=== PATIENT | male | born 1970 | race African-American/Black ===

== ENCOUNTER 2018-10-21 15:55 | Emergency (ER) | payer OTHER ==
[~2018-10-21] VITALS: Ht 182.9 cm; Wt 71.2 kg
[~2018-10-21 15:55] MED LIST: NORCO 5-325 TA1 EACH PO; PREDNISONE 20 M20 MG PO; [UNRECOGNIZED DRUG - REMARK]
[2018-10-21 17:17] VITALS: BP 141/96
== END 2018-10-21 17:29 | disposition home or self-care (01) ==
LOC: ER 15:55
DX: R42 Dizziness and giddiness (principal); Z90.49 Acquired absence of other specified parts of digestive tract

== ENCOUNTER → 2018-10-30 | Outpatient (CLI) | payer OTHER | LOC: ULTRA 15:03 | DX: E04.9 Nontoxic goiter, unspecified (principal) ==